=== PATIENT | female | born 1975 | race Caucasian/White ===

== ENCOUNTER 2018-04-28 14:35 | Outpatient (REF) | payer SELFPAY ==
--- NOTE | 2018-04-28 14:00 | PAPFT_PTH ---
PATIENT: PANFILO HAND LOC: [facility] U#:[id number] AGE/SX: 43/F ROOM: RE04/28/[address]: HA Damon : 1975 BED: DIS: 04/28/2018 SPEC #: [id number] RECD: 04/28/18 18:02 STATUS: KEY REDiamond #: [id number] EMMA: 04/28/18 14:[address]: Chasidy Garber DEPT: [facility] Cytology RECD BY: Debi Dickerson ENTERED: 04/28/18 18:02 SP TYPE: PAPFT OTHR DR: Kaila Infante V Tissues: 1 - CX/ENDOCX FOR PAP SMEARS Procedures: PAP THIN PREP/[facility] Screening HPV DNA PROBE Comments: [id number]
[2018-05-01 15:28] LABS: Chlamydia Result Negative; GC Result Negative; Specimen Description CERVIX
== END 2018-04-28 14:55 ==
LOC: LBN 14:35
PROVIDERS: PCP Family Medicine; Visit Provider Nurse Practitioner Family
DX: Z12.4 Encounter for screening for malignant neoplasm of cervix (principal); Z11.51 Encounter for screening for human papillomavirus (HPV); Z11.3 Encounter for screening for infections with a predominantly sexual mode of transmission; Z30.433 Encounter for removal and reinsertion of intrauterine contraceptive device
CPT/HCPCS: 87491; 87591; 88142; 87624